=== PATIENT | female | born 1990 | race Two or more races ===

== ENCOUNTER 2018-05-13 13:31 | Emergency (ER) | payer SELFPAY ==
[~2018-05-13] VITALS: Ht 154.9 cm; Wt 48.0 kg
[2018-05-13 16:06] VITALS: BP 114/79
== END 2018-05-13 16:06 | disposition home or self-care (01) ==
LOC: ER 13:31
DX: S01.511A Laceration without foreign body of lip, initial encounter (principal); S40.811A Abrasion of right upper arm, initial encounter; W33.01XA Accidental discharge of shotgun, initial encounter; Y93.89 Activity, other specified; Y92.89 Other specified places as the place of occurrence of the external cause; Y99.8 Other external cause status
CPT/HCPCS: 99281